=== PATIENT | female | born 1935 | race Caucasian/White ===

== ENCOUNTER 2016-07-13 16:16 | Observation (INO) | payer OTHER, BC ==
[~2016-07-13] VITALS: Ht 157.5 cm; Wt 74.9 kg
[2016-07-13 16:43] LABS: EOSINOPHIL (%) 2.3 % (0-5); EOSINOPHIL COUNT 0.2 K/uL (0-0.3); HEMATOCRIT 38.1 % (36.0-46.0); IMMATURE GRANULOCYTE (%) 0.4 % (0.0-0.7); IMMATURE GRANULOCYTE COUNT 0.3 K/uL; LYMPHOCYTE COUNT 1.8 K/uL (1.0-2.8); MCH 28.3 PG (29.0-34.0); MCV 88.4 FL (83-99); MEAN PLAT.VOLUME 11.4 uM^3 (9.5-12.4); MONOCYTE (%) 6.9 % (3-12); MONOCYTE COUNT 0.5 K/uL (0-0.8); NEUTROPHIL (%) 67.6 % (45-76); NEUTROPHIL COUNT 5.3 K/uL (1.8-6.4); PLATELET COUNT 173 K/uL (156-360); RBC DIS.WIDTH-CV 13.1 % (11.8-14.6); RBC DIS.WIDTH-SD 41.5 % (39-53); RED BLOOD COUNT 4.31 M/uL (3.80-5.20); WHITE BLOOD COUNT 7.9 K/uL (4.1-10.2)
[2016-07-13 16:52] LABS: CHLORIDE 100 mEq/L (99-109); POTASSIUM 3.9 mEq/L (3.7-5.4); SODIUM 140 mEq/L (136-147)
[2016-07-13 16:54] LABS: GLUCOSE 139 mg/dL (70-99)
[2016-07-13 16:55] LABS: ANION GAP 13 MEQ/L (2-14)
[2016-07-13 16:58] LABS: GFR ESTIMATE (CALCULATED) 38 mL/min/
[2016-07-13 16:59] LABS: UREA NITROGEN (BUN) 21 mg/dL (9-23)
[2016-07-13 17:04] LABS: TROP-I INTERPRETATION NEGATIVE; TROPONIN-I 0.01 ng/mL (0.0-0.30)
[2016-07-13 18:12] LABS: ADD MIUA? YES; BILIRUBIN NEGATIVE; BLOOD NEGATIVE; COLOR AMBER ((YELLOW)); GLUCOSE (STRIP) NEGATIVE; KETONES 5; LEUKOCYTES SMALL; NITRITE NEGATIVE; PROTEIN (STRIP) 30; SPECIFIC GRAVITY 1.018 (1.000-1.030)
[2016-07-13 18:25] LABS: BACTERIA RARE /HPF; EPITHELIAL CELLS 1+ /HPF; HYALINE CASTS TNTC /LPF; MUCUS TRACE /LPF; RED BLOOD CELLS 0-5 /HPF (0-5); UCUL ADDED? NO
[2016-07-13 22:28] LABS: D-DIMER ELISA 0.65 mg/L FEU (< 0.57)
[2016-07-13 22:36] LABS: TROP-I INTERPRETATION NEGATIVE; TROPONIN-I 0.02 ng/mL (0.0-0.30)
[2016-07-14 01:17] VITALS: BP 115/55
[2016-07-14 03:48] VITALS: BP 110/51
[2016-07-14 06:28] LABS: EOSINOPHIL (%) 3.2 % (0-5); EOSINOPHIL COUNT 0.3 K/uL (0-0.3); HEMATOCRIT 33.4 % (36.0-46.0); IMMATURE GRANULOCYTE (%) 0.4 % (0.0-0.7); LYMPHOCYTE COUNT 2.5 K/uL (1.0-2.8); MCH 28.9 PG (29.0-34.0); MCV 90.3 FL (83-99); MEAN PLAT.VOLUME 12.1 uM^3 (9.5-12.4); MONOCYTE (%) 6.4 % (3-12); MONOCYTE COUNT 0.5 K/uL (0-0.8); NEUTROPHIL (%) 58.9 % (45-76); NEUTROPHIL COUNT 4.8 K/uL (1.8-6.4); PLATELET COUNT 131 K/uL (156-360); RBC DIS.WIDTH-CV 13.3 % (11.8-14.6); RBC DIS.WIDTH-SD 43.7 % (39-53); WHITE BLOOD COUNT 8.1 K/uL (4.1-10.2)
[2016-07-14 06:51] LABS: ALKALINE PHOSPHATASE 89 IU/L (3-129); ANION GAP 5 MEQ/L (2-14); CHLORIDE 103 MEQ/L (99-109); DIRECT BILIRUBIN 0.1 mg/dL (0.0-0.3); GFR ESTIMATE (CALCULATED) 51 mL/min/; SAMPLE HEMOLYSIS CHECK 0; SAMPLE ICTERIC CHECK 0; SAMPLE LIPEMIA CHECK 0; SODIUM 140 MEQ/L (136-147); TOTAL BILIRUBIN 0.4 MG/DL (0.0-1.0); UREA NITROGEN (BUN) 21 mg/dL (9-23)
[2016-07-14 06:54] LABS: GLUCOSE 91 mg/dL (70-99); POTASSIUM 5.1 MEQ/L (3.7-5.4)
[2016-07-14 06:59] LABS: TROP-I INTERPRETATION NEGATIVE; TROPONIN-I 0.02 ng/mL (0.0-0.30)
[2016-07-14 11:17] LABS: ADD MIUA? YES; BILIRUBIN NEGATIVE; BLOOD SMALL; COLOR STRAW ((YELLOW)); GLUCOSE (STRIP) NEGATIVE; KETONES NEGATIVE; LEUKOCYTES TRACE; NITRITE NEGATIVE; PROTEIN (STRIP) NEGATIVE; SPECIFIC GRAVITY 1.003 (1.000-1.030); UROBILINOGEN 0.2 MG/DL (0.2-1.0)
[2016-07-14 11:45] VITALS: BP 103/58
[2016-07-14 13:38] LABS: BACTERIA RARE /HPF; EPITHELIAL CELLS RARE /HPF; MUCUS NONE SEEN /LPF; RED BLOOD CELLS 0-5 /HPF (0-5); WHITE BLOOD CELLS 0-5 /HPF (0-5); WHITE BLOOD CELLS CLUMP RARE /HPF (0-5)
== END 2016-07-14 17:00 | disposition home or self-care (01) ==
LOC: EME 16:16 → EDOF 21:38 → 4EAST 21:38 → EDOF 21:41 → 4EAST 21:41 → EDOF 21:41 → 4EAST 07-14 01:07
PROVIDERS: Emergency Medicine; Hospitalist; Internal Medicine
DX: R55 Syncope and collapse (principal); I95.89 Other hypotension; E86.0 Dehydration; N39.0 Urinary tract infection, site not specified; I44.0 Atrioventricular block, first degree; D68.9 Coagulation defect, unspecified; Z82.3 Family history of stroke; N28.9 Disorder of kidney and ureter, unspecified
CPT/HCPCS: 70450; 71020; 78582; 80048; 80076; 81003; 83605; 84484; 85025; 85379; 87086; 87493; 93005; 93306; 93880; 99281; 99285; A9540; A9567; G0378; J0696; J1644; J2405; J7030; J7050